=== PATIENT | female | born 1950 | race Caucasian/White ===

== ENCOUNTER 2023-09-19 13:22 | Emergency (ER) | payer MEDICARE, OTHER, SELFPAY ==
[2023-09-19 13:28] VITALS: BP 130/60
[2023-09-19 13:58] LABS: % Basophils 0.2 % (0-2); % Immature Granulocytes 0.2 % (0-0.5); % Lymphocytes 26.3 % (20.5-51.1); % Monocytes 9.7 % (1.7-9.3); % Neutrophils 61.6 % (42.2-75.2); Absolute Eosinophils 0.1 10^3/uL (0-0.7); Absolute Lymphocytes 1.7 10^3/uL (1.2-3.4); Absolute Monocytes 0.6 10^3/uL (0.1-0.6); Hematocrit 32.7 % (37.0-47.0); Hemoglobin 11.2 g/dL (12.0-16.0); Mean Corp Hgb Conc. 34.3 g/dL (33.0-37.0); Mean Corpuscular Hgb 31.5 pg (27.0-31.0); Mean Corpuscular Volume 91.9 fL (81.0-99.0); Mean Platelet Volume 10.8 fL (7.4-10.4); Nucleated Red Blood Cells % 0 %; Platelet Count 168 10^3/uL (130-400); Red Blood Cell Count 3.56 10^6/uL (4.20-5.40); Red Cell Dist. Width 12.6 % (11.5-14.5); White Blood Cell Count 6.5 10^3/uL (4.8-10.8)
[2023-09-19 14:14] LABS: ALT (SGPT) 15 U/L (0-35); AST (SGOT) 21 U/L (14-36); Albumin 3.8 g/dl (3.5-5.0); Alkaline Phosphatase 166 U/L (38-126); Blood Urea Nitrogen 26 mg/dl (7-17); Calcium 8.9 mg/dl (8.4-10.2); Carbon Dioxide 26 mmol/L (22-30); Chloride 105 mmol/L (98-107); Glucose 108 mg/dl (70-99); Potassium 4.1 mmol/L (3.5-5.1); Sodium 140 mmol/L (135-145); Total Bilirubin 0.5 mg/dl (0.2-1.3); Total Protein 6.8 g/dl (6.3-8.2); eGFR > 60.00
--- NOTE | 2023-09-19 17:40 | ED.GENMED ---
History of Present Illness
General
Chief Complaint: Blood Pressure Problem
Source: patient
Time Seen by Provider: 09/19/23 17:01
Travel History
Have you had any contact with someone who has COVID-19?: No
Do you have any symptoms of coronavirus? Fever > 100 degrees, chills, cough, shortness of breath, sore throat, loss of taste or smell, muscle aches, or headache?: No
History of Present Illness
History of Present Illness:
72-year-old female presents to the emergency room at the advice of her primary care provider. Patient was at the office for a 6-month checkup when her vital signs were measured. They measured her blood pressure below in the 70 systolic range.
Patient perhaps felt dizzy but she states she really was feeling fine prior to her visit. She does take medication for blood pressure including metoprolol. She denies any chest pain, shortness of breath, nausea, vomiting. Patient does have MS
which has made her wheelchair-bound.
Past History
Past History
ED Past Medical History: Asthma, HTN and Other (C-diff, Bilateral hip decub. Wound vac right hip)
ED Past Surgical History: Other (romeo tube wound VAC on the hip)
Social History
Tobacco: Former smoker
Alcohol: None
Personal:
Living: with family
Employment: Retired
Family History
Family History: Other (Noncontributory)
Phy Exam
Physical Exam
Physical Exam:
General: Awake, Alert, Oriented X3. No acute distress.
Vitals: unremarkable
Head: Atraumatic
Eyes: Pupils equal, EOMI
Throat: Airway intact, no exudates
Neck: Trachea midline
Lungs: Clear and equal b/l
Heart: Regular rate, no murmurs
Abd: Soft, Nontender, No pulsatile mass
Neuro: Bilateral lower extremity
Skin: Warm, dry, no rash
Extremities: pulses equal b/l, no edema
Course
Orders/Labs/Results
Orders:
Orders
09/19/23 13:32
Electrocardiogram (*1) Urgent
Reason for Study: Fatigue / Weakness
EKG- Treatment ONCE
09/19/23 13:43
Complete Blood Count/With Diff Urgent
Comprehensive Metabolic Panel Urgent
Abnormal Lab Results
09/19/23
13:43
RBC 3.56 L 10^6/uL
(4.20-5.40)
Hgb 11.2 L g/dL
(12.0-16.0)
Hct 32.7 L %
(37.0-47.0)
MCH 31.5 H pg
(27.0-31.0)
MPV 10.8 H fL
(7.4-10.4)
Monocytes % 9.7 H %
(1.7-9.3)
BUN 26 H mg/dl
(7-17)
Glucose 108 H mg/dl
(70-99)
Alkaline Phosphatase 166 H U/L
(38-126)
09/19/23 13:43
09/19/23 13:43
Vital Signs
Initial and Last Documented VS:
Initial Vital Signs
Temp Pulse Resp BP Pulse Ox
98.0 F 51 16 130/60 98
09/19/23 13:28 09/19/23 13:28 09/19/23 13:28 09/19/23 13:28 09/19/23 13:28
Last Documented Vital Signs
Temp Pulse Resp BP Pulse Ox
98.0 F 51 16 130/60 98
09/19/23 13:28 09/19/23 13:28 09/19/23 13:28 09/19/23 13:28 09/19/23 17:41
MDM/Problems Addressed
Differential Diagnosis Includes:
dehydration, medication effect, anemia, sepsis
MDM/Problems Addressed:
Patient presents after having a low blood pressure measurement at her primary care doctor's office. Patient was feeling well prior to the visit. This was a semiannual physical. This visit was not scheduled due to any acute problem. Upon arrival
here the patient's blood pressure was found to be normal. She had several measurements here which are normal as well. Patient denies any chest pain, shortness of breath. Her heart rate is noted to be somewhat bradycardic. She does take 100 mg of
metoprolol twice daily. Given the patient's stability here decision was made for her to be discharged. Patient is anxious to be discharged home. We will have her reduce her metoprolol dose to 50 mg twice daily, measure her blood pressure each day
and follow-up with cardiology to see how she responds to this change in medication.
*Pulse Oximetry
Patient hypoxic: no
*EKG
Interpreted by ED Provider?: Yes
Interpretation: abnormal
Heart Rate: 45
Rate: bradycardiac
Rhythm: sinus
Soso: normal axis
Interval: normal interval
QRS Pattern: normal QRS
Ischemia: no ischemia
*Critical Care Note
Total Time (30-74mins, 75-104mins- exclusive of procedures): Not Applicable
ED Attending Note
-
Portions of this chart may have been created with voice recognition software.� Occasional wrong word or��sound alike� substitutions may have occurred due to the inherent limitations of voice recognition software.
Discharge Plan
Departure
Patient Disposition: Home (Routine Discharge)
Date of Disposition: 09/19/23
Time of Disposition: 17:40
Patient with high blood pressure during this ER visit?: Yes
Condition: Good
Discharge Problem:
Dizziness
Instructions: Dizziness, Adult ED
Prescriptions:
No Action
tizanidine 2 MG tablet
2 mg PO TID PRN (Reason: muscle spasms)
sertraline 100 MG tablet
100 mg PO DAILY@1200
cholecalciferol (vitamin D3) 1,000 UNITS tablet
1,000 units PO DAILY@1200
oxcarbazepine 300 MG tablet
300 mg PO Q12
valsartan 40 MG tablet
40 mg PO DAILY Qty: 30 0RF
metoprolol succinate 25 MG tablet extended release 24 hr
50 mg PO BID
furosemide 40 MG tablet
40 mg PO DAILY
Referrals:
Ady Shah CRNP [Family Provider] -
Activity Restrictions/Additional Instructions:
Because her family doctor measured her blood pressure below in the office today I would recommend cutting the dose of metoprolol in half. The tablet you have can be cut in half. I would take half a tablet in the morning and half tablet in the
evening and measure your blood pressure twice a day (but only twice a day). Call your private branch exchange service adviser to schedule a follow-up appointment. Return to the emergency room for any concerns
Interventions
Interventions:
*Risk Screen - Suicide Last Done: 09/19/23 18:24
*General Assessment Last Done: 09/19/23 18:24
*Neglect/Abuse Screening Last Done: 09/19/23 18:24
ED- Fall Risk Assessment Last Done: 09/19/23 18:24
*ED COVID-19 Vaccine History Last Done: 09/19/23 13:28
*Nursing Disposition Last Done: 09/19/23 18:24
ED- Cardiac Assessment Last Done: 09/19/23 17:41
ED- Neurological Assessment Last Done: 09/19/23 17:41
ED- Pulmonary Assessment Last Done: 09/19/23 17:41
Discharge Date and Time
Discharge Date/Time: 09/19/23 18:25
Print Language: MAORI
== END 2023-09-19 18:25 | disposition home or self-care (01) ==
LOC: EMR 13:22
PROVIDERS: Emergency Medicine; EMERGENCY PHYSICIAN Emergency Medicine; FAMILY PHYSICIAN Nurse Practitioner Family
DX: R42 Dizziness and giddiness (principal); I10 Essential (primary) hypertension; G35 Multiple sclerosis; J45.909 Unspecified asthma, uncomplicated; Z99.3 Dependence on wheelchair; Z79.899 Other long term (current) drug therapy; Z87.891 Personal history of nicotine dependence
CPT/HCPCS: 99283; 80053; 85025; 93005